=== PATIENT | male | born 1980 | race Caucasian/White ===

== ENCOUNTER 2024-08-01 01:59 | Emergency (ER) | payer OTHER ==
[~2024-08-01] VITALS: Ht 172.7 cm; Wt 99.8 kg
[2024-08-01] MEDS ORDERED: IBUPROFEN 400 MG TABLET ONE (02:19)
[2024-08-01] MEDS: IBUPROFEN 400 MG TABLET PO ONE (02:23)
[2024-08-01 05:08] VITALS: BP 148/90; TEMP 98; O2SAT 94
== END 2024-08-01 05:10 | disposition home or self-care (01) ==
LOC: ER 02:02
DX: S62.334A Displaced fracture of neck of fourth metacarpal bone, right hand, initial encounter for closed fracture (principal); S62.396A Other fracture of fifth metacarpal bone, right hand, initial encounter for closed fracture; M79.641 Pain in right hand; X50.9XXA Other and unspecified overexertion or strenuous movements or postures, initial encounter; Y93.89 Activity, other specified; Y92.89 Other specified places as the place of occurrence of the external cause; Y99.8 Other external cause status
CPT/HCPCS: 73130-TC